=== PATIENT | male | born 1985 | race Two or more races ===

== ENCOUNTER 2019-07-17 10:47 | Emergency (ER) | payer OTHER ==
[~2019-07-17] VITALS: Ht 170.2 cm; Wt 72.6 kg
[2019-07-17 10:55] VITALS: BP 145/82
== END 2019-07-17 22:03 | disposition left against medical advice (07) ==
LOC: ER 10:47
DX: S33.5XXA Sprain of ligaments of lumbar spine, initial encounter (principal); X58.XXXA Exposure to other specified factors, initial encounter; Y93.89 Activity, other specified; Y92.89 Other specified places as the place of occurrence of the external cause; Y99.8 Other external cause status